=== PATIENT | male | born 2000 | race Caucasian/White ===

== ENCOUNTER 2019-06-18 10:20 | Emergency (ER) | payer BC ==
[2019-06-18] MEDS ORDERED: Azithromycin 250 MG Tab PO STA (10:39)
[2019-06-18] MEDS ORDERED: predniSONE 20 MG Tab PO ONE (10:39)
[2019-06-18] MEDS ORDERED: Take Home: predniSONE 20 MG, 2 Tab Pack PO ONE (10:39)
--- NOTE | 2019-06-18 10:47 | EDM.PDOC ---
ED HPI GENERAL MEDICAL PROBLEM - General Chief Complaint: General Stated Complaint: cough Time Seen by Provider: 06/18/19 10:35 Source of Information: Reports: Patient History Limitations: Reports: No Limitations - History of Present Illness INITIAL COMMENTS - FREE TEXT/NARRATIVE: Patient comes into the emergency department with complaint of cough, fever, excessive sputum production. Patient states that he has been feeling ill for greater than 7 days. He was into the clinic early last week and they stated that he could possibly had influenza however they did not test for it according to the patient. Patient was sent off with recommendations to increase his water intake and to stay away from other individuals. Patient comes in today stating denies progressively gotten worse over the course last 6-7 days. He states that the cough has become more progressive. He's only slept 6 hours in the last 3 days for his cough is majorly severe and when he is lying flat he has increased coughing episodes to the clinic aching and wanting to throw. He also states that he has large amount of sputum production that is produced. The sputum production is characterized as BN thick brown greenish. He also states that he does have a foul-smelling back of his mouth. He states that he is having episodes of feeling extremely warm and cold and diaphoretic at times. Patient denies any chest pain, shortness of breath, wheezing, GI concerns, or peripheral edema. Patient also denies any other concerns or complaints. Onset: Gradual Location: Reports: Chest, Generalized Quality: Reports: Other Severity: Moderate Improves with: Reports: None Worsens with: Reports: None Associated Symptoms: Reports: Cough, cough w sputum, Fever/Chills, Malaise. Denies: Diaphoresis, Headaches, Loss of Appetite, Nausea/Vomiting, Shortness of Breath Treatments ADMINISTRATIVE TECHNICIAN: Reports: Acetaminophen, Other (see below) (dayquil and nightquil ) Upper Chest Pain Score (Numeric/FACES): 8 - Related Data Allergies Allergy/AdvReac Type Severity Reaction Status Date / Time No Known Allergies Allergy Verified 06/18/19 10:34 Home Meds: Home Meds Azithromycin 250 mg PO DAILY #4 tablet 06/18/19 [Rx] predniSONE [Prednisone] 20 mg PO BID #10 tablet 06/18/19 [Rx] Past Medical History - Past Surgical History Musculoskeletal Surgical History: Reports: Arthroscopic Knee Other Musculoskeletal Surgeries/Procedures:: L knee February 2018 ED ROS GENERAL - Review of Systems Review Of Systems: ROS reveals no pertinent complaints other than HPI. Constitutional: Reports: No Symptoms HEENT: Reports: No Symptoms Respiratory: Reports: Cough, Sputum. Denies: Shortness of Breath, Wheezing, Pleuritic Chest Pain Cardiovascular: Reports: No Symptoms Endocrine: Reports: No Symptoms GI/Abdominal: Reports: No Symptoms : Reports: No Symptoms Musculoskeletal: Reports: No Symptoms Skin: Reports: No Symptoms Neurological: Reports: No Symptoms Psychiatric: Reports: No Symptoms Hematologic/Lymphatic: Reports: No Symptoms Immunologic: Reports: No Symptoms ED EXAM, GENERAL - Physical Exam Exam: See Below Exam Limited By: No Limitations General Appearance: Alert, WD/WN, No Apparent Distress Ears: Normal External Exam, Normal Canal, Hearing Grossly Normal, Normal TMs Ear Exam: Bilateral Ear: Auricle Normal, Canal Normal Nose: Normal Inspection, Normal Mucosa, No Blood Throat/Mouth: Normal Inspection, Normal Lips, No Airway Compromise Head: Atraumatic, Normocephalic Neck: Normal Inspection, Supple, Non-Tender, Full Range of Motion Respiratory/Chest: Chest Non-Tender, Decreased Breath Sounds, Other (large amount of coughing noted). No: Crackles, Rales, Rhonchi, Stridor, Accessory Muscle Use, Retractions, Splinting Cardiovascular: Normal Peripheral Pulses, Regular Rate, Rhythm Peripheral Pulses: 3+: Radial (L), Radial (R) GI/Abdominal: Normal Bowel Sounds, Soft, Non-Tender, No Distention, No Abnormal Bruit Back Exam: Normal Inspection, Full Range of Motion Extremities: Normal Inspection, Normal Range of Motion, Non-Tender, No Pedal Edema, Normal Capillary Refill Neurological: Alert, Oriented, Normal Gait Psychiatric: Normal Affect, Normal Mood Skin Exam: Warm, Dry, Intact, Normal Color Course - Vital Signs Last Recorded V/S: Last Vital Signs Temp 36.3 C 06/18/19 10:20 Pulse 88 06/18/19 10:20 Resp 16 06/18/19 10:20 BP 126/78 06/18/19 10:20 Pulse Ox 98 06/18/19 10:20 - Orders/Labs/Meds Orders: Active Orders 24 hr Category Date Time Status Azithromycin [Zithromax] Med 06/18/19 10:39 Stat 500 mg PO ONETIME STA predniSONE Med 06/18/19 10:39 Once 20 mg PO ONETIME ONE predniSONE [Take Home: predniSONE 20 MG, 2 Tab Pack] Med 06/18/19 10:39 Once 1 packet PO ONETIME ONE Departure - Departure Time of Disposition: 10:45 Disposition: Home, Self-Care 01 Condition: Good Clinical Impression: Walking pneumonia - Discharge Information *PRESCRIPTION DRUG MONITORING PROGRAM REVIEWED*: Not Applicable *COPY OF PRESCRIPTION DRUG MONITORING REPORT IN PATIENT HARRY: Not Applicable Instructions: Community-Acquired Pneumonia, Adult Additional Instructions: 1. rest 2. increase water intake 3. Take antibiotics even if feeling better 4. May want to sleep in recliner tonight to help reduce the bronchospasms 5. take a probiotic while taking antibiotic. 6. Take prednisone as prescribed 7. Activity and diet as tolerated 8. Call with any questions or concerns - Problem List Review Problem List Initiated/Reviewed/Updated: Yes - My Orders Last 24 Hours: My Active Orders 06/18/19 10:39 Azithromycin [Zithromax] 500 mg PO ONETIME STA predniSONE 20 mg PO ONETIME ONE predniSONE [Take Home: predniSONE 20 MG, 2 Tab Pack] 1 packet PO ONETIME ONE - Assessment/Plan Last 24 Hours: My Active Orders 06/18/19 10:39 Azithromycin [Zithromax] 500 mg PO ONETIME STA predniSONE 20 mg PO ONETIME ONE predniSONE [Take Home: predniSONE 20 MG, 2 Tab Pack] 1 packet PO ONETIME ONE Assessment:: 1. walking pneumonia Plan: 1. Azithromycin given in the ER 2. Prednisone given in the ER 3. Patient is instructed on antibiotic use, probiotic use, activity, diet, follow-up, reduce risk of spread of germs and when to return if symptoms worsen. 4. All questions and concerns addressed prior to discharge
== END 2019-06-18 10:57 | disposition home or self-care (01) ==
LOC: VM.ED 10:20
DX: J18.9 Pneumonia, unspecified organism (principal)
CPT/HCPCS: 99283; A9270-GY